=== PATIENT | male | born 1970 | race Caucasian/White ===

== ENCOUNTER 2022-06-03 17:25 | Outpatient (CLI) | payer BC | END 2022-06-03 17:26 | disposition home or self-care (01) | LOC: LABBT 17:25 | PROVIDERS: ATTEND Internal Medicine | DX: Z12.11 Encounter for screening for malignant neoplasm of colon (principal); Z20.822 Contact with and (suspected) exposure to COVID-19 | CPT/HCPCS: 87811 ==

== ENCOUNTER 2022-06-07 06:09 | Day surgery (SDC) | payer BC ==
[2022-06-05 10:08] VITALS: BMI 46.5
[2022-06-07] MEDS ORDERED: Ketamine 50 MG/ML (10ML VIAL) ONE (07:42)
[2022-06-07] MEDS ORDERED: Lidocaine 1% PF 5 ML VIAL ONE (08:03)
[2022-06-07] MEDS ORDERED: PROPOFOL 200 MG/20 ML VIAL ONE (08:03)
== END 2022-06-07 09:25 | disposition home or self-care (01) ==
LOC: SDC 06:09
PROVIDERS: ATTEND Internal Medicine
PROC: 0DBP8ZZ Excision of Rectum, Via Natural or Artificial Opening Endoscopic (ICD-10-PCS; principal; 2022-06-07)
PROC: 0DBK8ZZ Excision of Ascending Colon, Via Natural or Artificial Opening Endoscopic (ICD-10-PCS; principal; 2022-06-07)
DX: Z12.11 Encounter for screening for malignant neoplasm of colon (principal); D12.2 Benign neoplasm of ascending colon; K62.1 Rectal polyp; K57.30 Diverticulosis of large intestine without perforation or abscess without bleeding; K64.8 Other hemorrhoids; I10 Essential (primary) hypertension; E78.5 Hyperlipidemia, unspecified; G47.30 Sleep apnea, unspecified; F17.290 Nicotine dependence, other tobacco product, uncomplicated; E78.00 Pure hypercholesterolemia, unspecified; E66.01 Morbid (severe) obesity due to excess calories; Z68.42 Body mass index [BMI] 45.0-49.9, adult; Z79.82 Long term (current) use of aspirin; Z79.84 Long term (current) use of oral hypoglycemic drugs; Z79.899 Other long term (current) drug therapy; Z86.16 Personal history of COVID-19
CPT/HCPCS: 88305; J2704

== ENCOUNTER 2022-12-17 14:00 | Emergency (ER) | payer BC ==
[2022-12-17 14:43] LABS: #Eosinphils 0.1 thou/uL (0.0-0.7); #Lymphocytes 2.3 thou/uL (1.20-3.40); #Monocytes 0.5 thou/uL (0.11-0.59); #Neutrophils 5.5 thou/uL (1.40-6.50); %Basophils 0.5 % (0.0-1.0); %Eosinophils 0.7 % (0.0-10.0); %Lymphocytes 27.2 % (21.0-51.0); %Monocytes 6.4 % (0.0-10.0); %Neutrophils 65.3 % (42.0-75.0); Hemoglobin 12.3 g/dL (14.0-18.0); Mean Corpuscular HGB CONC 33.9 g/dL (32.0-36.0); Mean Corpuscular Hemoglobin 30.5 pg (27.0-31.0); Mean Platelet Volume 7.4 fL (7.4-10.4); Platelet Count 267 10x3/uL (130-400); RBC Distribution Width 12.4 % (11.5-14.5); Red Blood Cell (RBC) Count 4.04 mill/uL (4.70-6.10); White Blood Cell (WBC) Count 8.5 10x3/uL (4.8-10.8)
[2022-12-17 14:50] LABS: INR-International Normal Ratio 1.2; Prothrombin Time 15.7 sec (12.0-14.7)
[2022-12-17 15:17] LABS: ALT (SGPT) 48 U/L (8-55); AST (SGOT) 24 U/L (5-34); Albumin 4.1 g/dL (3.5-5.0); Alkaline Phosphatase 48 U/L (40-110); Anion Gap 15 mmol/L (10-20); BUN (Urea Nitrogen) 17 mg/dL (8.4-25.7); Bilirubin, Total 0.8 mg/dL (0.2-1.2); Calc. Creatinine Clearance 0 mL/min (70-130); Calcium 9.1 mg/dL (7.8-10.44); Carbon Dioxide 23 mmol/L (22-29); Chloride 102 mmol/L (98-107); Estimated GFR 107; Glucose 118 mg/dL (70-105); Potassium 4.5 mmol/L (3.5-5.1); Protein, Total 6.1 g/dL (6.0-8.3); Sodium 135 mmol/L (136-145)
== END 2022-12-17 16:41 | disposition home or self-care (01) ==
LOC: ERS 14:00
DX: K62.5 Hemorrhage of anus and rectum (principal); D64.9 Anemia, unspecified; I10 Essential (primary) hypertension; F17.220 Nicotine dependence, chewing tobacco, uncomplicated
CPT/HCPCS: 36415; 80053; 83540; 85025; 85610; 85730; 86850; 86900; 86901; 99283

== ENCOUNTER 2022-12-20 05:55 | Day surgery (SDC) | payer BC ==
[2022-12-19 12:35] VITALS: BMI 45.4
[2022-12-20] MEDS ORDERED: PHENYLEPHRINE-NS 100 MCG/ML 10 ML SYRINGE ONE (08:38)
[2022-12-20] MEDS ORDERED: PROPOFOL 200 MG/20 ML VIAL ONE (08:38)
[2022-12-20] MEDS ORDERED: Lidocaine 1% PF 5 ML VIAL ONE (08:38)
[2022-12-20 09:50] LABS: #Eosinphils 0.1 thou/uL (0.0-0.7); #Lymphocytes 1.3 thou/uL (1.20-3.40); #Monocytes 0.4 thou/uL (0.11-0.59); #Neutrophils 3.3 thou/uL (1.40-6.50); %Basophils 0.5 % (0.0-1.0); %Monocytes 7.7 % (0.0-10.0); %Neutrophils 65.7 % (42.0-75.0); Hemoglobin 8.8 g/dL (14.0-18.0); Mean Corpuscular HGB CONC 34.7 g/dL (32.0-36.0); Mean Corpuscular Hemoglobin 31.7 pg (27.0-31.0); Mean Corpuscular Volume 91.3 fl (78.0-98.0); Platelet Count 211 10x3/uL (130-400); RBC Distribution Width 13.4 % (11.5-14.5); Red Blood Cell (RBC) Count 2.78 mill/uL (4.70-6.10); White Blood Cell (WBC) Count 5.1 10x3/uL (4.8-10.8)
== END 2022-12-20 11:27 | disposition home or self-care (01) ==
LOC: SDC 05:55
PROVIDERS: ATTEND Internal Medicine
PROC: 0DBL8ZX Excision of Transverse Colon, Via Natural or Artificial Opening Endoscopic, Diagnostic (ICD-10-PCS; principal; 2022-12-20)
DX: K57.31 Diverticulosis of large intestine without perforation or abscess with bleeding (principal); D12.3 Benign neoplasm of transverse colon; K64.8 Other hemorrhoids; K64.4 Residual hemorrhoidal skin tags; D64.9 Anemia, unspecified; Z79.82 Long term (current) use of aspirin; Z79.84 Long term (current) use of oral hypoglycemic drugs; Z79.899 Other long term (current) drug therapy
CPT/HCPCS: 85025; 88305; J2704